=== PATIENT | male | born 1980 | race Asian ===

== ENCOUNTER 2018-06-27 17:03 | Emergency (ER) | payer BC ==
[2018-06-27] MEDS ORDERED: Mupirocin 2% OINT* TUBE TOPICAL ONE (18:23)
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
[2018-06-27] MEDS ORDERED: Tetan/Diph/Pertus SYR(Tdap)* 0.5 ML SYR(BOOSTRIX) use SYR IM ONE (19:04)
[2018-06-27 19:24] VITALS: BP 166/89
== END 2018-06-27 19:24 | disposition home health service (06) ==
LOC: UCEAST 17:03 → EDSEX 17:03 → UCEAST 19:24
DX: T20.29XA Burn of second degree of multiple sites of head, face, and neck, initial encounter (principal); T23.291A Burn of second degree of multiple sites of right wrist and hand, initial encounter; X08.8XXA Exposure to other specified smoke, fire and flames, initial encounter; Y92.9 Unspecified place or not applicable
CPT/HCPCS: 16000; 16020; 90715; 99203; G0463